=== PATIENT | female | born 1965 | race Caucasian/White ===

== ENCOUNTER 2016-08-28 06:43 | Day surgery (SDC) | payer OTHER ==
[~2016-08-28] VITALS: Ht 162.6 cm; Wt 90.8 kg
[~2016-08-28 06:43] MED LIST: LEVO125T11 PO; SITA100T12 PO; SPIR50TA PO; ZOLP10TA6 PO
[2016-08-28 06:48] VITALS: BP 136/93; PULSE 92; RESP 17; TEMP 98.6; O2SAT 94; Ht 162.6 cm; Wt 90.8 kg
--- NOTE | 2016-08-28 06:54 | ANESPREOP ---
Anesthesia Record Date and Time DATE: 08/28/16 TIME: 06:53 Pre-Op Diagnosis Screening Proposed Surgical Procedure COLONOSCOPY NPO since: Midnight Allergies: Coded Allergies: No Known Allergies (Unverified , 11/16/15) Ht/Wt/BMI Height: 5 ' 4.00 " Weight: kg BMI: kg/m2 Medications Inpatient Medications Current Medications Medications (Trade) Dose Ordered Sig/Veronica Start Time Stop Time Status Last Admin Dose Admin Lactated Ringer's (Lactated Ringers) 1,000 ml @ 50 mls/hr Q20H 08/28/16 07:00 Levothyroxine Sodium (Levothyroxine Sodium) 125 Mcg Tablet, 125 MCG PO ACB, ( Reported) Once daily before breakfast. Last Taken: on 08/28/16 0600 Sitagliptin Phosphate (Januvia) 100 Mg Tablet, 100 MG PO DAILY, (Reported) Last Taken: on 08/27/16 2100 Spironolactone (Aldactone) 50 Mg Tablet, 1 TAB PO DAILY, (Reported) Last Taken: on 08/27/16 0800 Zolpidem Tartrate (Zolpidem Tartrate) 10 Mg Tablet, 0.5 TAB PO HS, (Reported) Take 1 tablet, by mouth, 1 time a day (at BEDTIME). Last Taken: on 08/27/16 2100 Discontinued Medications Spironolactone (Spironolactone) 100 Mg Tablet, 1 TAB PO DAILY, (Reported) Currently on Beta Olya: No Medical/Surgical History Anesthesia PMH: Reports: *Diabetes, Thyroid Disease (HYPOTHYROIDISM PER H&P), Denies: *Angina, *Dyspnea, *AK, Anesthesia Reactions (NO AIRWAY ISSUES-NAUSEA), Arthritis, Asthma, CHF, COPD, CVA/Stroke/TIA, Cancer, Clotting Problems, Deep Vein Thrombosis, Glaucoma, Hepatitis, Hiatal Hernia, Malignant Hyperthermia, Pneumonia, Reflux, Renal Disease, Seizures, Sleep Apnea, Tuberculosis Smoking Status: Never smoker Has pt. smoked today?: No Use Chewing Tobacco?: No Second Hand Exposure: No Substance Use Type: does not use Alcohol Intake: none HX of Last Menstrual Period: HYST. Past Surgical History Orthopedic Surgeries: Yes - LAMINECTOMY/DISECTOMY OF L5/S1,R CTR Abdominal Surgeries: Yes - ABDOMINOPLASTY PER H&P Genitourinary Surgeries: No Cardiac Surgeries: No Endocrine Surgeries: Yes - PARATHYROID RESECTION PER H&P Reproductive Surgeries: Yes - HYST. Neurological Surgeries: No Ear Surgeries: No Nose Surgeries: No Throat Surgeries: No Other Surgeries: No - C-SECTIONS X3, ROBOTIC ASSISTED HYST, abdominal plasty tummy tuck Anesthesia Adverse Reactions: FOUND none Family Hx of Anesthesia Advers: none Hx of Motion Sickness: No Pertinent Findings EKG Rhythm: Sinus Rhythm Physical Exam Respiratory: Lungs clear Cardiovascular: FOUND Regular rate, rhythm Airway Assessment Mallampati Score: II TMD: 3 Fingerbreadths Neck Extension: Good Overall Assessment: No Airway Concerns ASA: 2 Plan Anesthesia Plan: TIVA Discussion Discussed risks/options/alternatives of anesthesia and questions answered. Patient consents. Nursing pain assessment noted. Present: Family Member Attestation Statement Prior to the delivery of any anesthetic medication, I examined the patient, developed the plan, obtained the patient's consent and discussed the risk and benefits of the procedure with the patient/guardian. NIKKY JACOBS FIELD COUNSEL Aug 28, 2016 06:54
[2016-08-28] MEDS ORDERED: LR 1,000 ML IV SCH (07:00)
[2016-08-28] MEDS ORDERED: LIDOCAINE 1% (10mg/ml) 2ml SDV INJ ONE (07:00)
[2016-08-28] MEDS ORDERED: PROPOFOL 500mg 50 ML IV ONE (07:10)
[2016-08-28] MEDS ORDERED: PROPOFOL 200mg 20 ML IV ONE (07:49)
[2016-08-28 09:05] VITALS: BP 112/71; PULSE 85; RESP 16; TEMP 98.5; O2SAT 98
[2016-08-28 09:18] VITALS: BP 113/70; PULSE 92; RESP 24; O2SAT 97
[2016-08-28 09:30] VITALS: BP 128/78; PULSE 79; RESP 14; O2SAT 96
--- NOTE | 2016-08-28 10:52 | ANESPO ---
Post-Op Note Date 08/28/16 Time: 10:51 Status Pt Participated in Evaluation: Pt participated in person Vital Signs Date Time Temp Pulse Resp B/P Pulse Ox O2 Delivery O2 Flow Rate FiO2 08/28/16 09:30 79 14 128/78 96 Room Air 08/28/16 09:05 98.5 Respiratory Function: Airway patent Cardiovascular Function: Regular pulse Telemetry Pattern: SR Pain Level Intensity: 0 Unable to Assess Pain Due To: Pt Sleeping Hydration: Taking po fluids Complications during Recovery None apparent Follow-Up Instructions Instructions Per Surgeon NIKKY JACOBS CRNA Aug 28, 2016 10:52
--- NOTE | 2016-08-28 19:30 | OPNOTEF ---
DATE OF PROCEDURE: 08/28/2016 SURGEON: Massimo Ayon MD PREOPERATIVE DIAGNOSIS Colorectal cancer surveillance. POSTOPERATIVE DIAGNOSIS Colorectal cancer surveillance, colonic polyp x 1 located within the cecum. PROCEDURE: Colonoscopy with hot forceps polypectomy technique. ANESTHESIA: TIVA. BRIEF HISTORY/INDICATIONS Elena is a 50-year-old female who had never had a colonoscopy before. She discussed it with her primary care physician and decided to proceed with colonoscopy. For completeness please refer to office notes. FINDINGS Upon colonoscopy there was no evidence for angiodysplastic lesions, diverticula or andrew malignancies. The patient was found to have one small flat polyp within the cecum. This polyp was 2-3 mm in diameter. It was removed via hot forceps technique and submitted to Pathology. DESCRIPTION OF PROCEDURE After informed consent was obtained, the patient was brought to the endoscopy suite and placed on the table in the left lateral decubitus position. The patient subsequently underwent total intravenous anesthesia by the nurse hay chopper per my request. Next, a digital rectal examination was performed; normal sphincter tone. No rectal masses were appreciated. An Olympus colonoscope was inserted in the anus and advanced with the lumen of the colon under direct visualization at all times until the cecum was ascertained. Triangulation of the tenia coli, ileocecal valve and appendiceal lumen were all visualized. The scope was then slowly withdrawn, again while maintaining visualization of the lumen at all times. As stated above, the entire colon was without evidence for angiodysplastic lesions, diverticula or andrew malignancies. The patient was found to have one small polyp within the cecum as described above. Photographs were obtained for documentation. The scope continued to be withdrawn until it was removed from the patient's anal verge. The patient tolerated the procedure without difficulty and was sent back to the preoperative area in stable condition. We will await the biopsy results to make further recommendations. If this is hyperplastic she gets to go 10 years. If it is a tubular adenoma we will be looking at five. [facility]
== END 2016-08-28 09:50 | disposition home or self-care (01) ==
LOC: NSC 06:43
PROVIDERS: ATTEND Family Medicine
DX: Z12.11 Encounter for screening for malignant neoplasm of colon (principal); D12.0 Benign neoplasm of cecum; E21.3 Hyperparathyroidism, unspecified; G47.00 Insomnia, unspecified; E11.9 Type 2 diabetes mellitus without complications; E03.9 Hypothyroidism, unspecified; Z79.899 Other long term (current) drug therapy
CPT/HCPCS: 45384; 82948; J2704; J7120